=== PATIENT | male | born 1970 | race Caucasian/White ===

== ENCOUNTER 2017-06-28 13:57 | Emergency (ER) | payer BC ==
[2017-06-28 14:04] VITALS: BP 144/53; PULSE 63; TEMP 99.2; BMI 27.0
--- NOTE | 2017-06-28 14:21 | PDOC ---
History of Present Illness - General History Source: Patient Exam Limitations: No Limitations - History of Present Illness Initial Comments: 06/28/17 14:51 The patient is a 46 year old male with no significant past medical history who presents to the ED s/p finger laceration earlier today. The patient reports he was cutting a deer that he hunted when the knife slipped and injured his third left digit around 10:30 am earlier today. Patient states the knife that he injured himself with was covered in the deers blood. He reports washing his left third digit with soap and water. He reports slight pain that is worsened when he bends his left third digit. Denies fever or chills. Denies focal numbness weakness or tingling. Denies vomiting or diarrhea. Denies any other symptoms. <Tabitha Reynolds - Last Filed: 06/28/17 14:52> <Krystina Davila - Last Filed: 06/28/17 15:07> - General Chief Complaint: Laceration Stated Complaint: LACERATION TO LEFT 3 RD DIGIT Time Seen by Provider: 06/28/17 14:03 Past History <Tabitha Reynolds - Last Filed: 06/28/17 14:52> - Past Medical History COPD: No Other medical history: PT DENIES - Immunization History Immunization Up to Date: Yes - Suicide/Smoking/Psychosocial Hx Smoking History: Never smoked Have you smoked in the past 12 months: No Number of Cigarettes Smoked Daily: 0 Cigars Per Day: 0 Hx Alcohol Use: No Drug/Substance Use Hx: No Substance Use Type: None <Krystina Davila - Last Filed: 06/28/17 15:07> - Past Medical History Allergies/Adverse Reactions: Allergies Allergy/AdvReac Type Severity Reaction Status Date / Time No Known Allergies Allergy Verified 06/28/17 13:58 Home Medications: Ambulatory Orders Naproxen [Naprosyn -] 250 mg PO PRN PRN 08/16/13 Oxycodone HCl/Acetaminophen [Percocet 5-325 mg Tablet -] 1 tab PO Q4H PRN Amox-Tr/K Cl [Augmentin - 875Mg Tablet] 1 tab PO BID #14 tablet 06/28/17 Review of Systems - Review of Systems Able to Perform ROS?: Yes Comments:: 06/28/17 14:51 GENERAL/CONSTITUTIONAL: No fever or chills. No weakness. HEAD, EYES, EARS, NOSE AND THROAT: No change in vision. No ear pain or discharge. No sore throat. CARDIOVASCULAR: No chest pain or shortness of breath. RESPIRATORY: No cough, wheezing, or hemoptysis. GASTROINTESTINAL: No nausea, vomiting, diarrhea or constipation. GENITOURINARY: No dysuria, frequency, or change in urination. MUSCULOSKELETAL: No joint or muscle swelling or pain. No neck or back pain. SKIN: + left third digit laceration. No rash NEUROLOGIC: No headache, vertigo, loss of consciousness, or change in strength/ sensation. ENDOCRINE: No increased thirst. No abnormal weight change. HEMATOLOGIC/LYMPHATIC: No anemia, easy bleeding, or history of blood clots. ALLERGIC/IMMUNOLOGIC: No hives or skin allergy. All Other Systems: Reviewed and Negative <Tabitha Reynolds - Last Filed: 06/28/17 14:52> *Physical Exam - Vital Signs Last Vital Signs Temp Pulse Resp BP Pulse Ox 99.2 F 63 18 144/53 97 06/28/17 13:58 06/28/17 13:58 06/28/17 13:58 06/28/17 13:58 06/28/17 13:58 - Physical Exam Comments: 06/28/17 14:51 GENERAL: Awake, alert, and fully oriented, in no acute distress EXTREMITIES: Normal range of motion, no edema. No clubbing or cyanosis. No cords, erythema, or tenderness NEUROLOGICAL: motor sensation intact SKIN: + 1.5 cm laceration over the left third PIP on the dorsal surface, tendon function is intact. Warm, Dry, normal turgor, no rashes. <Tabitha Reynolds - Last Filed: 06/28/17 14:52> - Vital Signs Last Vital Signs Temp Pulse Resp BP Pulse Ox 99.2 F 63 18 144/53 97 06/28/17 13:58 06/28/17 13:58 06/28/17 13:58 06/28/17 13:58 06/28/17 13:58 <Krystina Davila - Last Filed: 06/28/17 15:07> Procedures - Laceration/Wound Repair Left Dorsal Finger 3rd digit Wound Length: to 2.5 cm Wound Explored: clean, no foreign body present Wound's Depth, Shape: superficial, linear Irrigated w/ Saline: Yes Anesthesia: 1% Lidocaine Amount of Anesthetic (ccs): 3 (digital block) Wound Repaired With: Sutures Suture Size/Type: 4:0 Number of Sutures: 4 Layer Closure: No Sterile Dressing Applied: Yes Splint Applied: Yes Type of Splint Applied: aluminum foam splint <Krystina Davila - Last Filed: 06/28/17 15:07> Medical Decision Making - Medical Decision Making 06/28/17 15:07 Treated with empiric augmentin, as patient states he was cutting up a deer when it happened. There was definitely blood in the wound, but more concerning, there may have been bowel contents as well. <Krystina Davila - Last Filed: 06/28/17 15:07> *DC/Admit/Observation/Transfer - Attestations Scribe Attestion: 06/28/17 14:52 Documentation prepared by Tabitha Reynolds, acting as biomedical equipment tech for Krystina Davila MD, <Tabitha Reynolds - Last Filed: 06/28/17 14:52> - Discharge Dispostion Admit: No <Krystina Davila - Last Filed: 06/28/17 15:07> Diagnosis at time of Disposition: Hand laceration Qualifiers: Encounter type: initial encounter Foreign body presence: without foreign body Laterality: left Qualified Code(s): S61.412A - Laceration without foreign body of left hand, initial encounter - Discharge Dispostion Disposition: HOME Condition at time of disposition: Improved - Prescriptions Prescriptions: Amox-Tr/K Cl [Augmentin - 875Mg Tablet] 1 tab PO BID #14 tablet - Patient Instructions Printed Discharge Instructions: DI for Laceration Repair -- Finger Additional Instructions: RETURN FOR SUTURE REMOVAL BETWEEN 09/06-07/09 TO HAVE STITCHES REMOVED. RETURN IMMEDIATELY FOR REDNESS, DRAINAGE OF PUS, FEVER, OR RED STREAKS UP YOUR ARM.
[2017-06-28] MEDS ORDERED: AMOX TR/POT CLAV 875MG/125MG TABLETS (FP) PO ONE (14:43)
[2017-06-28] MEDS ORDERED: AMOX TR/POT CLAV 875MG/125MG TABLETS (FP) ONE (14:48)
== END 2017-06-28 15:24 | disposition home or self-care (01) ==
LOC: FER 13:57
PROC: 0HQGXZZ Repair Left Hand Skin, External Approach (ICD-10-PCS; principal; 2017-06-28)
DX: S61.213A Laceration without foreign body of left middle finger without damage to nail, initial encounter (principal); W26.0XXA Contact with knife, initial encounter; Y93.89 Activity, other specified; Y92.9 Unspecified place or not applicable
CPT/HCPCS: 99282-25

== ENCOUNTER 2023-09-08 13:23 | Emergency (ER) | payer BC ==
[2023-09-08 13:28] VITALS: RESP 18; TEMP 97.8; BMI 24.3
[2023-09-08 15:59] LABS: BASO % 1.2 % (0-2.0); EOS % 0.5 % (0-4.5); HEMATOCRIT 38.9 % (35.4-49); HEMOGLOBIN 13.2 GM/dL (11.7-16.9); LYMPH % 18.8 % (8-40); MCH 30.9 pg (25.7-33.7); MCHC 33.9 g/dl (32.0-35.9); MEAN CELL VOLUME 91.2 fl (80-96); MEAN PLT VOLUME 7.3 fl (7.5-11.1); MONO % 6.7 % (3.8-10.2); NEUT % 72.8 % (42.8-82.8); PLATELET COUNT 196 10^3/uL (134-434); RBC 4.26 M/mm3 (4.00-5.60); RDW 13.2 % (11.9-15.9); WHITE BLOOD COUNT 7.5 K/mm3 (4.0-10.0)
[2023-09-08 16:06] LABS: INR 1.04 (0.83-1.09); PROTHROMBIN TIME (PATIENT) 12.1 SEC (9.7-13.0)
[2023-09-08 16:09] LABS: ACTIVATED PTT 28.9 SECONDS (25.2-36.5)
[2023-09-08 16:20] LABS: POTASSIUM 4.5 mmol/L (3.5-5.1)
[2023-09-08 16:22] LABS: BLOOD UREA NITROGEN 18.3 mg/dL (7-18); CALCIUM 9.4 mg/dL (8.5-10.1)
[2023-09-08 16:23] LABS: ALBUMIN 4.2 g/dl (3.4-5.0)
[2023-09-08 16:27] LABS: TOT PROT 6.8 g/dl (6.4-8.2)
[2023-09-08 16:28] LABS: BILIRUBIN,TOTAL 0.4 mg/dL (0.2-1)
[2023-09-08 18:12] VITALS: BP 139/44; PULSE 52
== END 2023-09-08 18:12 | disposition home or self-care (01) ==
LOC: JER 13:23
DX: R07.9 Chest pain, unspecified (principal); R10.12 Left upper quadrant pain; R06.02 Shortness of breath; R42 Dizziness and giddiness; R23.2 Flushing; Z20.822 Contact with and (suspected) exposure to COVID-19
CPT/HCPCS: 0241U-QW; 36415; 71046-TC-FY; 80053; 83735; 84484; 85025; 85379; 85610; 85730; 93005; 93010; 99285-25